=== PATIENT | male | born 1945 | race Caucasian/White ===

== ENCOUNTER 2017-02-01 13:04 | Emergency (ER) | payer MEDICARE ==
[~2017-02-01 13:04] MED LIST: ADALAT CC60 MG PO; APRES10B PO; APRES25 PO; APRES50 PO; ASA5GR PO; ASAB PO; BYSTOLIC5 MG; C5; COREG PO; COREG12 PO; COREG25 PO; COZ25 PO; D.O.S.100 MG PO; DEMA20; DEMA20 PO; DEX4 PO; DSS PO; DULERA 200 MCG/13 GM INH; FLOVENT110 INH; GLUCOPHXR7 PO; GLUCPH PO; HABIT21 TOP; HALF81 PO; HYDRALAZINE; HYGROTON 25 MG25 MG OR; IMDUR120 PO; ISOSORBIDE PO; IVVIBRA; KLOR-CON M2020 MEQ PO; L80 PO; LANTUSCART; LANTUSCART SC; LEVAQUIN750 MG PO; LEVEMFLXPN SC; LIPITOR20 PO; LIPITOR40 PO; LORTAB10 PO; LOTE20 PO; Lipitor PO; MSCONT15 PO; MSCONTIN PO; MSIMMREL PO; MUCINEX600 MG PO; NITRO DUR TOP; NITRO TOP; NORCO1 TAB PO; NORV10 PO; NORV5 PO; NOVOPEN SQ; OMNICEF300 PO; P10 PO; P20; PCET PO; PERCOCET1 TA2 PO; PLAVIX PO; PR25 PO; PROAIR HFA INH; T200 PO; TORSEMIDE PO; VENTOLIN HFA INH; VENTOLIN HFA PO; VITAMIN D2000 UNIT PO; X5 PO
[2017-02-01 13:35] LABS: BASOPHILS 0.4 %; BASOPHILS ABSOLUTE 0.05 10/3/uL (0.0-0.16); EOSINOPHILS 2.4 %; EOSINOPHILS ABSOLUTE 0.28 10/3/uL (0.0-0.53); HEMOGLOBIN 12.3 g/dL (13.6-17.8); IMMATURE GRANULOCYTES 0.9 %; LYMPHOCYTES 10.9 %; LYMPHOCYTES ABSOLUTE 1.26 10/3/uL (0.67-4.30); MANUAL DIFF NO %; MEAN CORPUS HGB CONC 33.2 g/dL (32.0-36.0); MEAN CORPUSCULAR HEMOGLOB 29.6 pg (26.0-34.0); MEAN CORPUSCULAR VOLUME 89.2 fL (80-100); MEAN PLATELET VOLUME 10.3 fL (9.2-13.0); MONOCYTES 5.5 %; MONOCYTES ABSOLUTE 0.64 10/3/uL (0.21-1.20); NEUTROPHILS 79.9 %; NEUTROPHILS ABSOLUTE 9.24 10/3/uL (2.02-8.40); PLATELET COUNT 236 10/3/uL (150-400); RBC DISTRIBUTION WIDTH 14.7 % (12.0-16.0); RED CELL COUNT 4.15 10/6/uL (4.7-6.1); WHITE BLOOD CELLS 11.6 10/3/uL (4.5-10.5)
[2017-02-01 13:49] LABS: A/G RATIO 0.9 (0.7-1.9); ALBUMIN 3.4 G/DL (3.5-5.0); ALKALINE PHOSPHATASE 92 U/L (45-117); CALCIUM, SERUM 8.9 MG/DL (8.5-10.4); CHLORIDE, SERUM 98 MMOL/L (96-112); CO2 (CARBON DIOXIDE) 32 MMOL/L (24-34); CREATININE 2.23 MG/DL (0.70-1.30); GFR AFRICAN AMERICAN 33 ML/MIN (>=60); GFR NON AFRICAN AMERICAN 28 ML/MIN (>=60); GLOBULIN 3.7 G/DL (2.5-4.1); POTASSIUM, SERUM 3.9 MMOL/L (3.5-5.3); SGOT(AST) 13 U/L (5-40); SGPT(ALT) 15 U/L (5-65); SODIUM, SERUM 136 MMOL/L (135-148); TOTAL BILIRUBIN 0.8 MG/DL (0-1.2); TOTAL PROTEIN 7.1 G/DL (6.0-8.5)
[2017-02-01 13:50] LABS: BUN (BLOOD UREA NITROGEN) 27 MG/DL (6-23); GLUCOSE, SERUM 248 MG/DL (60-99)
[2017-02-01 13:51] LABS: EOSINOPHILS 1 %; EOSINOPHILS ABSOLUTE (CALC) 0.12 10/3/uL (0.0-0.53); ER DIFF TAT 0 Hrs 22 Mins; LYMPHOCYTES 8 %; LYMPHOCYTES ABSOLUTE (CALC) 0.93 10/3/uL (0.67-4.30); MONOCYTES 2 %; MONOCYTES ABSOLUTE (CALC) 0.23 10/3/uL (0.21-1.20); NEUTROPHILS ABSOLUTE (CALC) 10.32 10/3/uL (2.02-8.40); PLATELET ESTIMATE ADQ (ADEQUATE); RBC MORPHOLOGY NORM (NORMAL); SEGMENTED NEUTROPHIL (0) 89 %; TOTAL NUCLEATED CELLS 100
== END 2017-02-01 18:00 | disposition home or self-care (01) ==
LOC: ER 13:04
PROVIDERS: Emergency Medicine
DX: J44.0 Chronic obstructive pulmonary disease with (acute) lower respiratory infection (principal); J20.9 Acute bronchitis, unspecified; J44.1 Chronic obstructive pulmonary disease with (acute) exacerbation; I12.9 Hypertensive chronic kidney disease with stage 1 through stage 4 chronic kidney disease, or unspecified chronic kidney disease; N18.9 Chronic kidney disease, unspecified; E11.22 Type 2 diabetes mellitus with diabetic chronic kidney disease; Z95.1 Presence of aortocoronary bypass graft; F17.200 Nicotine dependence, unspecified, uncomplicated; Z79.899 Other long term (current) drug therapy; Z79.82 Long term (current) use of aspirin; Z88.8 Allergy status to other drugs, medicaments and biological substances
CPT/HCPCS: 71020; 80053; 85025; 87040; 93005; 94640; 96374; 99285; A9270-GY; J2930